=== PATIENT | male | born 1945 | race Caucasian/White ===

== ENCOUNTER 2021-11-25 19:08 | Emergency (ER) | payer MEDICARE, OTHER ==
[2021-11-25] MEDS ORDERED: ERYTHROMYCIN OPHTH OINT 1 GM TUBE LEFTEYE STA (19:58)
[2021-11-25] MEDS ORDERED: oxyCODONE/ACET 5/325 Prepack 4 PO STA (19:59)
--- NOTE | 2021-11-25 20:09 | ED Physician Documentation ---
PD HPI OPHTHO - Stated complaint Stated Complaint: L EYE INJ - Chief complaint Chief Complaint: Heent - History obtained from History obtained from: Patient - Additional information Additional information: Patient is a 76-year-old male with a history significant for hypothyroidism presenting for evaluation of left eye pain starting around 2 hours ago. Patient was working outside and ran into a tree branch.He feels irritation to the eye and it is painful to open. His vision is normal when he is able to open it. He did irrigate his eye with water which did not improve his symptoms.He does not take a blood thinner. Denies injuries elsewhere. Review of Systems Constitutional: denies: Fever Eyes: reports: Photophobia. denies: Loss of vision, Discharge Nose: denies: Congestion Cardiac: denies: Chest pain / pressure Respiratory: denies: Dyspnea GI: denies: Abdominal Pain Skin: denies: Rash Musculoskeletal: denies: Back pain Neurologic: denies: Headache, Head injury PD PAST MEDICAL HISTORY - Past Medical History Past Medical History: Yes Endocrine/Autoimmune: HyPOthyroidism - Past Surgical History Past Surgical History: Yes General: Appendectomy - Present Medications Home Medications: Ambulatory Orders Medication Instructions Recorded Confirmed Levothyroxine [Synthroid] 100 mcg PO DAILY 12/10/13 11/25/21 Erythromycin Base [Erythromycin 1 appful LEFTEYE 5XD 7 Days #1 gm 11/25/21 Ophthalmic Ointment] - Allergies Allergies/Adverse Reactions: Allergies Allergy/AdvReac Type Severity Reaction Status Date / Time No Known Drug Allergies Allergy Verified 11/25/21 19:25 - Social History Does the pt smoke?: No Smoking Status: Never smoker Does the pt drink ETOH?: Yes Does the pt have substance abuse?: No - Immunizations Immunizations are current?: Yes PD ED PE NORMAL - General General: Alert and oriented X 3, No acute distress, Well developed/nourished - HEENT HEENT: Atraumatic, PERRL, EOMI, Moist mucous membranes - Neck Neck: Supple, no meningeal sign - Respiratory Respiratory: No respiratory distress - Derm Derm: No rash - Extremities Extremities: No edema - Neuro Neuro: Normal speech - Psych Psych: Normal mood PD ED PE EXPANDED - HEENT HEENT Visual: 1 - abrasion - Eyes Eyes: PERRL, EOMI, Normal eyelids, Corneal abrasion, Fluorescein uptake, Anterior chambers clear, Other (IOP 18). No: Eyelid injury, Eyelid swelling, Eyelid erythema, No eyelid FB (everted), Subconj hemorrhage, Scleral icterus, Hyphema Results - Vitals Vitals: Vital Signs - 24 hr 11/25/21 11/25/21 19:20 20:22 Temperature 36.6 C 36.6 C Heart Rate 76 75 Respiratory 18 18 Rate Blood Pressure 164/68 H 155/65 H O2 Saturation 95 96 Oxygen O2 Source Room air PD MEDICAL DECISION MAKING - ED course ED course: Patient with left eye irritation after walking into a tree branch. No signs of globe rupture. Visual acuity intact. No signs of preseptal or orbital cellulitis. Intraocular pressures are normal. Patient has worsening uptake consistent with corneal abrasion. No signs of foreign body. Patient started on antibiotic ointment and aware of need for close follow-up with ophthalmology. He is aware of strict return precautions. Departure - Departure Disposition: 01 Home, Self Care Clinical Impression: Left corneal abrasion Qualifiers: Encounter type: initial encounter Qualified Code(s): S05.02XA - Injury of conjunctiva and corneal abrasion without foreign body, left eye, initial encounter Condition: Stable Instructions: ED Eye Injury Corneal Abrasion Prescriptions: Erythromycin Base [Erythromycin Ophthalmic Ointment] 1 appful LEFTEYE 5XD 7 Days #1 gm Comments: You were evaluated after an injury to your left eye and found to have a corneal abrasion. This is a scratch to the eye. We are prescribing antibiotic ointment which you should use every 1-2 hours while awake. You can also apply more if you wake up in the middle of the night. I have sent your prescription to [facility] in [place]. 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 If you have any worsening such as fever, increased swelling, increased pain, changes to your vision, abnormal discharge please return to the emergency department. I have prescribed a small amount of narcotic medication which you have received in the emergency department tonight. Please use this sparingly. You can also use Tylenol as needed for pain. Please do not exceed 4000 g of Tylenol per day. I am prescribing a short course of narcotic pain medication for you. These are potentially dangerous and addictive medications that should be used carefully. These medications may constipate you. Take an [id number] stool softener (docusate) twice daily with plenty of water while taking these medications. If you go 24 hours without a bowel movement, take [id number] miralax, per package instructions. Do not drink or drive while taking these medications. If you received narcotic or sedating medications while in the emergency department, do not drive for 24 hours. Store this medication in a safe, secure place and out of reach of children. It is a violation of federal law to give or sell this medication to another person or to use in a manner other than prescribed. The ED will not refill narcotic prescriptions, including prescriptions lost or stolen. To dispose of unwanted medications: 1. [facility] [address] in [place] has a medication drop box. They accept prescription medications (in pill form) Thursday through Thursday 9:00 a.m. to 5:00 p.m. 2. The [facility] [employer] accepts prescription medications (in pill form only) for disposal year round. Call for more information. 3. Contact the [facility] for the next [facility] sponsored prescription drug collection event. , [phone], or [phone]; Note that many narcotic pain relievers also contain Tylenol/acetaminophen. Please ensure that your total dose of acetaminophen from all sources does not exceed 3 g (3000 mg) per day. Discharge Date/Time: 11/25/21 20:35
[2021-11-25 20:23] VITALS: BP 155/65
== END 2021-11-25 20:35 | disposition home or self-care (01) ==
LOC: ED 19:08
DX: S05.02XA Injury of conjunctiva and corneal abrasion without foreign body, left eye, initial encounter (principal); W22.8XXA Striking against or struck by other objects, initial encounter; Y93.H9 Activity, other involving exterior property and land maintenance, building and construction
CPT/HCPCS: 99282; J3490

== ENCOUNTER 2022-11-28 15:14 | Emergency (ER) | payer MEDICARE, OTHER ==
[2022-11-28 15:23] VITALS: BP 147/75
--- NOTE | 2022-11-28 15:46 | ED Physician Documentation ---
History of Present Illness - Stated complaint Stated Complaint: INSECT BITE - Chief complaint Chief Complaint: Wound - History obtained from History obtained from: Patient - History of Present Illness Pain level max: 0 Pain level now: 0 - Additonal information Additional information: 77-year-old male complains of swelling to the posterior neck for the past 2 weeks. He states he thinks it may have been an insect bite. Nothing makes it better or worse. Has never had similar symptoms previously. No fevers. No chills. No drainage. Review of Systems Constitutional: denies: Fever, Chills Skin: denies: Rash PD PAST MEDICAL HISTORY - Past Medical History Past Medical History: Yes Endocrine/Autoimmune: HyPOthyroidism - Past Surgical History Past Surgical History: Yes General: Appendectomy - Present Medications Home Medications: Ambulatory Orders Medication Instructions Recorded Confirmed Levothyroxine [Synthroid] 100 mcg PO DAILY 12/10/13 11/25/21 Erythromycin Base [Erythromycin 1 appful LEFTEYE 5XD 7 Days #1 gm 11/25/21 Ophthalmic Ointment] Sulfamethox/Trimeth 800/160 1 each PO BID #14 tablet 11/28/22 [Bactrim Ds 800/160] cephALEXin [Keflex] 500 mg PO Q6H #28 cap 11/28/22 - Allergies Allergies/Adverse Reactions: Allergies Allergy/AdvReac Type Severity Reaction Status Date / Time No Known Drug Allergies Allergy Verified 11/28/22 15:23 - Social History Does the pt smoke?: No Smoking Status: Never smoker Does the pt drink ETOH?: Yes Does the pt have substance abuse?: No - Immunizations Immunizations are current?: Yes PD ED PE NORMAL - Vitals Vital signs reviewed: Yes - General General: Alert and oriented X 3, No acute distress - HEENT HEENT: Moist mucous membranes, Pharynx benign - Neck Neck: Other (At the base of the neck there is approximately a 1.5 cm circular indurated area. No drainage.) - Cardiac Cardiac: RRR - Respiratory Respiratory: No respiratory distress, Clear bilaterally - Derm Derm: Warm and dry - Neuro Neuro: Alert and oriented X 3 - Psych Psych: Normal mood, Normal affect Results - Vitals Vitals: Vital Signs - 24 hr 11/28/22 15:21 Temperature 36.4 C L Heart Rate 80 Respiratory 16 Rate Blood Pressure 147/75 H O2 Saturation 96 Oxygen O2 Source Room air - Labs Labs: Microbiology 11/28/22 15:55 Wound Culture - Preliminary Abscess Procedures - Abscess I&D (location) Posterior neck Preparation: Confirmed with ultrasound, Chlorhexadine, Lidocaine 1% Incision: Incised with scalpel, Purulent drainage, Irrigated, Culture obtained Other: Pt tolerated well, Dressing applied, Antibiotic prescribed PD Medical Decision Making - ED course Complexity details: considered differential, d/w patient ED course: Incision and drainage performed. Tolerated well. Wound culture sent. Will place on oral antibiotics for home. We will have him follow-up with his doctor for further care. Given the small size of the abscess, no packing was placed. Patient counseled regarding signs and symptoms for which I believe and urgent re-evaluation would be necessary. Patient with good understanding of and agreement to plan and is comfortable going home at this time This document was made in part using voice recognition software. While efforts are made to proofread this document, sound alike and grammatical errors may occur. Departure - Departure Disposition: Home, Self Care Clinical Impression: Abscess Condition: Good Instructions: ED Abscess IandD Follow-Up: your,doctor in 3 days for wound check [Other] Prescriptions: Sulfamethox/Trimeth 800/160 [Bactrim Ds 800/160] 1 each PO BID #14 tablet cephALEXin [Keflex] 500 mg PO Q6H #28 cap Comments: Your prescriptions were sent to [facility] in [place]. Take all antibiotics until gone. Return if you worsen. As we discussed we did send a wound culture. If an antibiotic change is needed, we will call you. Please keep the wound clean. This should continue to drain for the next 1 to 3 days. Discharge Date/Time: 11/28/22 16:18
== END 2022-11-28 16:18 | disposition home or self-care (01) ==
LOC: ED 15:14
DX: L02.11 Cutaneous abscess of neck (principal)
CPT/HCPCS: 10060; 87070; 87205